=== PATIENT | male | born 1975 | race Caucasian/White ===

== ENCOUNTER 2020-04-05 04:28 | Observation (INO) | payer MEDICARE, SELFPAY ==
[2020-04-05] VITALS (75 sets, daily range): BP systolic 89–140; BP diastolic 60–108; PULSE 69–96; RESP 12–26; TEMP 36.3–36.6; O2SAT 79–98
--- NOTE | 2020-04-05 04:39 | ED.GENADUL_ITS ---
Discharge Plan Disposition Patient Disposition: [facility] INPATIENT Condition: Stable Discharge Details Chief Complaint: AMS/LOC Clinical Impression: Aggressive behavior, Acute psychosis Primary Care Provider: Shannan Deluca ED Provider: Lisa Rey Home Meds and New Rx's Prescriptions: No Action riboflavin (vitamin B2) 100 mg Tablet 100 mg PO DAILY RF: 0 propranolol 60 mg Capsule,Extended Release 24 Hr 60 mg PO DAILY RF: 0 allopurinol 100 mg Tablet 100 mg PO BID RF: 0 indomethacin 50 mg Capsule 50 mg PO BID RF: 0 hydroxyzine HCl 25 mg Tablet 25 mg PO QHS RF: 0 mirtazapine 15 mg Tablet 15 mg PO QHS RF: 0 albuterol sulfate 90 mcg/actuation Hfa Aerosol Inhaler 1 inh INHALATION ONCE RF: 0 ondansetron 4 mg Tablet,Disintegrating 4 mg PO Q8H RF: 0 oxycodone 5 mg Tablet 5 mg PO BID PRNRF: 0 duloxetine 30 mg Capsule,Delayed Release(Dr/Ec) 30 mg PO DAILY RF: 0 duloxetine 60 mg Capsule,Delayed Release(Dr/Ec) 60 mg PO DAILY RF: 0 levomefolate calcium [L-Methylfolate] 15 mg Tablet 15 mg PO DAILY RF: 0 magnesium oxide 400 mg magnesium Tablet 400 mg PO BID RF: 0 Medical Decision Making <Gurdeep Galdamez MD - Last Filed: 04/05/20 07:34> 45 yo male with hx of anxiety, irritable bowel syndrome, concussion in 2011, depression, [place] [facility] [place], who was brought in by his because of increased agitation over the past week and reportedly hasn't taken any of his meds for about a month. He was being assessed by nursing for triage when he became agitated and screaming when I entered the exam room. For staff and myself safety I did not feel safe being in the area with him as I did not feel myself and staff that were on could safely restrain him. He started to sit in a chair and rock back and forth talking to the ceiling intermittently stating things like they are here to kill me, yelling they are draining my energy! and would make gun symbols with his hands and point them at staff. He made threatening attempts when any staff went near the door of his room and he eventually got up and exited the ED. He walked into his 's car and we were able to call and speak with the and the patient was yelling in the background that we were trying to kill him and that she needs to believe him. He then said fine I'll go back in and exited the car and then left for her own safety. The police were contacted after he left the building as we did not feel he was safe to leave in his mental state. He came to the ambulance bay door and using his hands broke the entire glass door down and entered the ED. Given his agitated state and lack of adequate staff to safely restrain him the ED was evacuated for safety until PD could arrive. It took 3 larger police officers to get him to lay in the bed and he was then given 5mg of haldol and 2mg of ativan and 50mg of benadryl IM and restrained using 4 point restraints out of fear of staff safety as well as patient's safety. He has multiple superficial abrasions of the arms from breaking down the glass door. He is now appropriately answering questions and knnows his name, year and place. He denies drug use or alcohol use. He denies remembering being in his 's car, or breaking down the ambulance baydoor, or talking to any voices while in the room earlier. Will obtain labs and when able head CT to rule out any ICH. He has no fevers or other findings on history or exam to suggest underlying medical process such as endocrine or infectious etiology. spoke with patients Jessica states the past month he stopped taking his meds on certain days. He had more agitation and one day ripped a ceiling fan off and threw a phone at a TV and the left the home and called the police. When police arrived he was calm and so he was released to 's care. She reports he has been acting more strange and overly loving, laughing uncontrollably then crying uncontrollably, and then stating he was talking with god and he never does this. He has never had an episode like this in the past per , he does vape thc products and she thinks last use was 3 days ago otherwise no known drug use and no alcohol abuse. He also has had worsening insomnia and doesn't feel he has actually slept in 2 days. Patient remains intermittently agitated shaking the stretcher so additional 5mg haldol and 2mg ativan given patient flippd the stretcher and has no signs of injury so 2mg IV ativan given. Given still requires urine and CT imaging will sedate with IV ketamine. sedation complete withotu incident or complication with 150mg IV ketamine, pt signed out to oncoming provider pending imaging and lab results, if reassuring will have to be evaluated by mental health Differential Diagnosis Differential Diagnosis: russell, drug use, psychosis <Lisa Rey DO - Last Filed: 04/05/20 15:06> 0800 -- please see Dr. Galdamez's note for initial presentation, exam and plan. Case endorsed to have mental health evaluate patient once he is more awake and alert. Plan is for admission to psychiatric facility and will have to be EE if not voluntary. Labs and imaging reviewed. CT head negative. White blood cell count 11. TSH normal UDS positive for THC. Alcohol, salicylates and Tylenol negative. As he has no fever, no obvious noted focal deficits, do not suspect an acute infectious or organic cause at this time. 0900 --patient reassessed -he is becoming more alert. Patient was able to state to the nurse that he is at [facility]. He told me that he was at the [place] . He was unable to state to me that he was in the ER. When asked why he was here, he stated that he was brought here by the activated as a sleeper agent. He also stated that he is hearing voices telling him to sell his car to his neighbors for $75 and that is why he was brought here. also stated to staff earlier that he had not been taking his medications which he also admitted to the nurse. He told me that he was taking his medications. He denies any suicidal ideation. He did not answer the question about homicidal ideation. 929 --Pt evaluated by Leonor from [facility] and Antoinette with care management - he stated to them that he is an instrument of God's punishment and staff and people need to be punished because of what they did to me . He expressed to them that he is understanding of plan to go to psychiatric facility and is agreeable with psychiatric placement. Due to patient's concern for unpredictable and inconsistent behavior, plan is to complete EE paperwork. 1230 --discussed with patient's and daughter over the phone who stated that patient stopped his medication 1 month ago, specifically his duloxetine and mirtazapine which helped him with sleep. They state he told them he stopped his meds because they are from [place] . They state he has not slept for the last 2 days. They state that he has told them he is the next [facility] . On March 01, patient became agitated at home, throwing a phone at the TV and ripping a c eiling fan out, leading to the police being called, and him ultimately being cleared by police. They state since then he has had moments of acting at his baseline, but this has gotten worse over the last 2 days. 1330 --Long delay in moving patient to floor after extensive discussions with hospitalist, mental health and care management with concern for violent patient. EE paperwork completed. Dr. Velásquez had requested possible transfer to [facility] due to his level of potential violent behavior. It was discussed with [facility] psych and they think patient is too acute for transfer there. After mental health and care management discussed with multiple local facilities, patient likely will not be transferred there today. Plan is for admission to the floor while awaiting placement. Prior to transfer to floor, patient able to be additionally evaluated and noted a 2 cm laceration extending through subcu tissue left lateral wrist. Patient stated he did not want sutures. Area was irrigated and closed with Dermabond. No signs of infection or foreign body. Medical Records Medical records reviewed: Yes I reviewed the patient's medical records. HPI <Gurdeep Galdamez MD - Last Filed: 04/05/20 07:34> General Mode of arrival: ambulatory . Date/Time Provider Initiated Documentation: 04/05/20 04:30 . Limitations to Documentation: altered mental status . Information obtained by: family . History of Present Illness 45 year old M presents to the emergency department with the chief complaint of agitation, described as moderate, No relieving factors improve symptom(s), No exacerbating factors reported . Patient did receive the following treatments prior to arrival, none Related Data Home Medications Medication Instructions Recorded Confirmed albuterol sulfate 1 inh INHALATION ONCE 04/05/20 04/05/20 allopurinol 100 mg PO BID 04/05/20 04/05/20 duloxetine 30 mg PO DAILY 04/05/20 04/05/20 duloxetine 60 mg PO DAILY 04/05/20 04/05/20 hydroxyzine HCl 25 mg PO QHS 04/05/20 04/05/20 indomethacin 50 mg PO BID 04/05/20 04/05/20 levomefolate calcium 15 mg PO DAILY 04/05/20 04/05/20 [L-Methylfolate] magnesium oxide 400 mg PO BID 04/05/20 04/05/20 mirtazapine 15 mg PO QHS 04/05/20 04/05/20 ondansetron 4 mg PO Q8H 04/05/20 04/05/20 oxycodone 5 mg PO BID PRN 04/05/20 04/05/20 propranolol 60 mg PO DAILY 04/05/20 04/05/20 riboflavin (vitamin B2) 100 mg PO DAILY 04/05/20 04/05/20 Allergies Allergy/AdvReac Type Severity Reaction Status Date / Time No Known Allergies Allergy Unverified 04/05/20 05:33 General Stated Complaint: AMS/LOC PAVEL: 2 Review of Systems <Gurdeep Galdamez MD - Last Filed: 04/05/20 07:34> Unobtainable due to mental condition Exam <Gurdeep Galdamez MD - Last Filed: 04/05/20 07:34> Const General: combative HENMT Head: normal to inspection General nose exam: external nose normal Eyes Alignment and Position: alignment normal Neck Neck: normal visual inspection Resp Effort & Inspection: normal respiratory effort and able to speak in complete sentences Cardio Rate: regular rate Neuro General: patient alert Extrem General: normal to inspection Psych Speech and Movement: agitated Attitude: avoids eye contact and refuses to answer Thought Process: confabulating Course <Gurdeep Galdamez MD - Last Filed: 04/05/20 07:34> Vital Signs Vital signs: Vital Signs Temperature 36.6 C 04/05/20 04:36 Pulse 78 04/05/20 04:36 Respiratory Rate 18 04/05/20 04:36 Blood Pressure 136/108 H 04/05/20 04:36 Pulse Oximetry 98 04/05/20 04:36 Temperature 36.6 C 04/05/20 04:36 Pulse 78 04/05/20 04:36 Respiratory Rate 18 04/05/20 04:36 Blood Pressure 136/108 H 04/05/20 04:36 Pulse Oximetry 98 04/05/20 04:36 Procedures <Gurdeep Galdamez MD - Last Filed: 04/05/20 07:34> Procedural Sedation Indication: diagnostic imaging procedure ASA Class: I Preparation: radiation monitor applied and pulse oximeter Ketamine: IV Ketamine dose (mg): 150 Patient Tolerated Procedure: well and no complications Complications: none <Lisa Rey DO - Last Filed: 04/05/20 15:06> Laceration Laceration 1: Site: upper extremity (wrist) Side (If applicable): left Size (cm): 2 Description: linear Depth: simple, single layer Pre-repair: wound explored, irrigated extensively and deep structures intact Skin layer closed with: other (dermabond) Restraint Face to Face <Gurdeep Galdamez MD - Last Filed: 04/05/20 07:34> Time of Face to Face Face to Face: Time of Face to Face: 04:40 Patient's Immediate Situation Requiring Restraints/Seclusion: Harm to Staff & Others Patient Response to Restraints: Remains Agitated and Restless Patient's Medical & Behavioral Condition: agitated, broke a door, not redirectable Need for Continuation of Restraints Has Been Assessed: Restraints Continued 2nd Face to Face: Time of Face to Face: 06:40 Patient's Immediate Situation Requiring Restraints/Seclusion: Harm to Staff & Others Patient Response to Restraints: Remains Agitated and Restless Patient's Medical & Behavioral Condition: still agitated despite meds, fli pped the stretcher over Need for Continuation of Restraints Has Been Assessed: Restraints Continued Sign Out <Gurdeep Galdamez MD - Last Filed: 04/05/20 07:34> Sign Out Data: Sign Out Comment: follow up imaging and lab results , dispo Last updated by Gurdeep Galdamez MD at 04/05/20 07:17
--- NOTE | 2020-04-05 04:49 | NUR.NOTE ---
Nursing Note: all nursing care on hold until [facility]SP arrive on scene to provide back up. Pt currently sitting in room on stool and making hands into a gun and pointing them at pt.
--- NOTE | 2020-04-05 04:54 | NUR.NOTE ---
Nursing Note:Pt walked out of ED and into wifes car. calls into ED her is in the car a belligerent. is able to convince pt to return to ED. ED staff unanimously decide that pt will not be let into ED until police back up is present. Pt proceeds to break down the ambulance door. ED staff exit the ER for fear of our lives. [place] [employer], VSP, hospital security cuff pt. Pt given IM ativan and haldol and transitioned from cuffs to 4 point restraints.
[2020-04-05] MEDS: Haloperidol 5 MG/ML VIAL (05:13)
[2020-04-05] MEDS: LORazepam 2 MG/ML VIAL (05:13)
[2020-04-05] MEDS: diphenhydrAMINE 50 MG/ML VIAL ×2 (05:20→05:57)
--- NOTE | 2020-04-05 05:45 | DI.CT_ITS ---
EXAM: CT HEAD WO CLINICAL HISTORY: altered mental status TECHNIQUE: COMPARISON: No exams were available for comparison FINDINGS: Noncontrast cranial CT was performed. Mild motion artifact may obscure subtle changes. No evidence of acute intracranial hemorrhage, mass effect, or midline shift. Ventricular system is normal in nelson earance. Orbital and temporal bone structures appear intact. Mastoid air cells and paranasal sinuse s are well aerated. IMPRESSION: No evidence of acute process.
[2020-04-05 05:51] LABS: BE (Venous) -1.5 mmol/L (-3-3); HCO3 (Venous) 23 mmol/L (22-28); O2 Sat (Venous) 96 % (70-80); TCO2 (Venous) 20 mmol/L (22-29); pCO2 (Venous) 35 mm/Hg (34-47); pH (Venous) 7.42 (7.35-7.45); pO2 (Venous) 80 mm/Hg (28-44)
[2020-04-05 05:54] LABS: Abs Immature Grans 0.03 k/cumm (0.0-0.09); Absolute Basophil Count 0.02 k/cumm (0.0-0.2); Absolute Lymphocyte Count 2.34 k/cumm (1.2-3.4); Absolute Monocyte Count 0.88 k/cumm (0.11-0.7); Absolute Neutrophil Count 7.51 k/cumm (1.2-6.7); Basophils % 0.2; Eosinophils % 2.7; HCT 49.2 % (40.0-50.0); Immature Grans % 0.3 %; Lymphocytes % 21.1; Mean Corp. HGB Concentration 34.6 g/dL (32.0-36.0); Mean Corpuscular Hemoglobin 27.7 pg (27.0-33.0); Mean Corpuscular Volume 80.1 fL (80-95); Mean Platelet Volume 10.4 fL (8.0-11.0); Monocytes % 7.9; Neutrophils % 67.8; Platelet Count 231 x1000/uL (130-400); RBC 6.14 m/cumm (4.50-6.00); RBC Distribution Width 14.1 % (11.8-14.1); White Blood Cell Count 11.08 k/cumm (4.4-10.8)
[2020-04-05 06:17] LABS: Acetaminophen < 2 ug/mL (10-30); Salicylate < 2.8 mg/dL (2.8-20.0)
[2020-04-05 06:22] LABS: ALT 44 U/L (16-63); AST 33 U/L (15-37); Albumin 4.4 g/dL (3.4-5.0); Alkaline Phosphatase 53 U/L (46-116); Anion Gap 8.8 mmol/L (3-11); BUN 15 mg/dL (7-18); Bilirubin, Total 1.4 mg/dL (0.2-1.0); CO2 25.2 mmol/L (21.0-32.0); CREATININE 1.55 mg/dL (0.70-1.30); Calcium 9.4 mg/dL (8.5-10.1); Chloride 104 mmol/L (98-107); Glucose 160 mg/dL (74-106); Magnesium 2.1 mg/dL (1.8-2.4); Potassium 3.5 mmol/L (3.5-5.1); Sodium 138 mmol/L (136-145)
[2020-04-05 06:23] LABS: ETHANOL BLOOD < 3.0 mg/dL (<3)
[2020-04-05] MEDS: LORazepam 2 MG/ML VIAL IVP (06:41)
--- NOTE | 2020-04-05 06:53 | NUR.NOTE ---
Nursing Note:0635 Pt flipped stretcher ML present. no injury identified; pt further medicated.
--- NOTE | 2020-04-05 07:14 | NUR.NOTE ---
Nursing Note: Approx 0500, solaris administrator cash application clerk notified by supervisor wound. Sunni ne called and chose to send respondents back to units after evolving safety concerns. No other patient in ED at this time. customer service manager called to inform of current situation. Nellie made aware that unable to accept pts via ambulance until situation is resolved or more in hand. Hospital security present. Pt does not appear connected with reality- wild eyed stare, yelling at lights about stealing my energy and threatening to harm staff, including pointing fingers together like a gun and pretending to shoot this medical underwriter, primary nurse and MD- smiling broadly while doing this. consulted for past history as pt is new to our facility. [facility] [place]. Hx TBI, anxiety, depression. Approx 0635, pt remains in restraints for continued threatening behavior - medication given per MAR with no apparent effect. Pt rocks and flips stretcher onto right side. Nursing respond and is able to put the stretcher right side up. Evaluation for injury performed which reveals no apparent injury. Previous injury to right shoulder per pt report. No entrapment of extremity sustained during this intentional flip. According to , Jessica- pt has been struggling x approx 1 month with COVID19 evolving situation. Per , pt is fixated on this pandemic and constantly watches news about it and researches cures and other items online. Approx 1 month ago, pt reportedly stopped taking his medication because it's made in [place] for 2-3 days, during which time pt was noted to have decrease in sleep, mood disturbance, throwing objects at TV, tearing down a ceiling fan with his bare hands and telling his over and over everything is evil. During this time, and pt left house r/t safety concern, met by VSP who talked with pt . According to he starting acting normal so they let him go. reports she had been counting his pills to make sure he was taking them,though does not observe their ingestion. Approx 8 days ago, pt began taking [employer] brand ratfish oil to help the salvador off the COVID, a few drops by mouth every day. Approx 7 days ago, pt began to sleep less, stare at the lights and yell, be overly loving, laugh and cry inappropriately to situation. denies any substance use aside from vaping THC sometimes. Denies ETOH, denies known [place] disorder. states no sleep at all for pt x 48 hours. total given pt at this time for medications are:10 mg Haldol, 6 mg Ativan (4 IM, 2 IV), 50 mg Benadryl. Pt to be given Ketamine in addition for CT to r/o acute injury. Verbal consent obtained from for treatment.
[2020-04-05] MEDS: Ketamine 500 MG/10 ML VIAL 150 MG IVP (07:21)
[2020-04-05 07:52] LABS: Bilirubin Negative (Negative); Blood Negative (Negative); Clarity Clear (Clear); Glucose Negative (Negative); Ketones Trace mg/dL (Negative); Leukocyte Esterase Negative (Negative); Nitrite Negative (Negative); Urobilinogen 0.2 EU/dL (Up TO 0.2)
--- NOTE | 2020-04-05 07:55 | CMSP_ITS ---
- If Service Date Differs Date of service: 04/05/20 Time of Service: 07:55 Care Management Safety Plan Ellis presented to the ED with agitation, altered mental status and aggressive behavior. He is not known to staff, and his stated that this is not normal behavior for him. He has a history of a TBI in 2011. No known mental health history. Per his , he has not been taking his meds regularly for the past month and has displayed paranoid behavior. In the ED he was threatening and agg ressive toward staff. He left the ED and went to his car with his . ED staff called his , who was able to get him back into the ED. Upon re entering the ED, he broke the ambulance bay door with his hands. VSP was called for safety and Ellis was put on a stretcher in 4 point restraints, as well as chemical restraints. CM was paged regarding a safety plan and assistance with protocol for restraint. CM consulted administration, who advised to continue to chemically restrain as long as pt is being monitored, also keep pt in 4 point restraints. If more assistance is needed, ED staff is advised to call VSP. CM will respond to ED to assess patient after patient has been medically cleared and assessed by screener. If screener deems patient meets criteria for psychiatric stabilization CM will facilitate interdepartmental huddle with [facility] screener for safety planning considerations and meet with patient to review [facility] policy and safety plan, establish individual wishes for treatment and maintain patient rights. At this point, CM anticipates pt will be held involuntary, awaiting medical clearance. In the interim; please note safety plan below to guide patient care while awaiting further assessment in the ED. INVOLUNTARY FOR INPATIENT PSYCHIATRIC STABILIZATION. SAFETY PLAN: 1. Will remain on SI/HI precautions. In Paper Clothes 2. Will remain in room under direct supervision of one-on-one staff at all times provided by [employer]; CHRYSTAL, PSYCHIATRIC NURSE machine shorthand teacher. Per [facility] patient has a history of elopement and is at risk for repeat attempt. 3. May have paper cups, plates, finger foods as well as a cardboard spoon 4. Follow [facility] Management of the Admitted Behavioral Health Patient policy. 5. Comfort bath system only. 6. No personal belongings 7. Visitors- none at this time. 8. Activities- none at this time. 9. Bathroom privileges with supervision 10. Phone: None at this time 11. Due to INVOLUNTARY status, if patient wishes to leave [facility], the [facility] psych social worker must be contacted to re-evaluate patient prior to patient exiting the building. Patient is currently involuntarily at [facility] and seeking inpatient admission when a bed becomes available. [facility] Frontline Air Sealing Technician will continue seeking placement. Please contact the Spiral Binder Contract Attorney ([phone]) and [facility] Air Sealing Technician ([phone]) for any needed changes in the Safety Plan. Safety plan has been provided to interdepartmental care team.
[2020-04-05 08:04] LABS: Bacteria Moderate HPF (Negative); Crystals Rare Amorphous HPF (Negative); Epithelial Cells Rare HPF (Negative); Mucus Trace (Negative); WBC 0-2 HPF (0-5)
[2020-04-05 08:05] LABS: C & S Indicated? Yes; Casts 0-2 Coarse Granular LPF (Negative)
[2020-04-05 08:29] LABS: *AMPHETAMINES SCREEN URINE Negative (Negative); *BARBITURATES SCREEN URINE Negative (Negative); *BENZODIAZEPINES SCREEN URINE Negative (Negative); Cannabinoids THC POSITIVE (Negative); Cocaine Screen,Urine Negative (Negative); METHADONE URINE SCREEN Negative (Negative); OPIATES URINE SCREEN Negative (Negative)
[2020-04-05 08:30] LABS: Tricyclic Antidepressants Negative (Negative)
--- NOTE | 2020-04-05 09:20 | RES.FACE_ITS ---
Date of service: 04/05/20 Time of Service: 08:01 Restraint Face to Face Time of Face to Face Face to Face: Time of Face to Face: 08:30 Patient's Immediate Situation Requiring Restraints/Seclusion: Harm to Staff & Others Patient Response to Restraints: Tolerating without Problems Patient's Medical & Behavioral Condition: Acute psychosis, delusional, stating he is here sent by the recently activated as a sleeper agent. Need for Continuation of Restraints Has Been Assessed: Restraints Continued 2nd Face to Face: Time of Face to Face: 11:00 Patient's Immediate Situation Requiring Restraints/Seclusion: Harm to Staff & Others Patient Response to Restraints: Tolerating without Problems Patient's Medical & Behavioral Condition: Pt told Leonor from mental [facility] that he is an instrument of God's punishment and will hurt the people and staff that have harmed him. Need for Continuation of Restraints Has Been Assessed: Restraints Continued 3rd Face to Face: Time of Face to Face: 13:12 Patient's Immediate Situation Requiring Restraints/Seclusion: Harm to Staff & Others Patient Response to Restraints: Tolerating without Problems Patient's Medical & Behavioral Condition: Continued concern for patient's unpredictable and inconsistent behavior and previous threatening statements. Need for Continuation of Restraints Has Been Assessed: Restraints Continued 4th Face to Face: Time of Face to Face: 15:45 Patient's Immediate Situation Requiring Restraints/Seclusion: Harm to Staff & Others Patient Response to Restraints: Tolerating without Problems Patient's Medical & Behavioral Condition: Pt still demonstrating delusional thoughts, talking about GOD standing for guardian of desire. Noted to touch velcro of restraints, appearing to attempt to remove or adjust. Continued concern for safety of staff due to previous threatening statements and behavior. Need for Continuation of Restraints Has Been Assessed: Restraints Continued
--- NOTE | 2020-04-05 09:38 | NUR.NOTE ---
Nursing Note: Talked with patient about reasoning for restraints and let patient know someone from mental health is trying to talk with patient. Patient reports I'm not going to be able to talk with him hand cuffed with one arm up and one arm down. Patient reminded the need for restraints keeping him and others safe. Patient reports I'm not going to cooperate if I'm going to stay in cuffs. Patient reminded we need to see positive change. Patient reports You don't understand how these medications work, they mess with your mind and make you think things. Patient then responds to mental health worker saying Oh michelle there.
[2020-04-05] MEDS: OLANZapine 10 MG VIAL IM (11:14)
--- NOTE | 2020-04-05 13:45 | DI.RAD_ITS ---
EXAM: XR ANKLE LT COMPLETE CLINICAL HISTORY: PORTABLE; r/o acute fracture TECHNIQUE: COMPARISON: CR XR FOOT LT COMPLETE from 04/05/2020 FINDINGS: Three views of the ankle and three views of the foot were obtained. The ankle mortise is well mainta ined. No fracture is seen. IMPRESSION:
--- NOTE | 2020-04-05 14:12 | NUR.NOTE ---
Nursing Note: Patient reports I am a lot better knowing who GOD is. GOD is an acronym stands for guardian of design. GOD has a boss and his name is LORD. This nurse asked what that stands for and patient responds I don't know that yet. Patient reports it may stand for radio design I don't know. You see the way we communicate with others is through the pineal gland. There is an electric transmission you send with the pineal gland. If something is wrong with that gland, communication is off, you can't communicate.
--- NOTE | 2020-04-05 15:34 | NUR.NOTE ---
patient transferred to room 220 ICU with JAIRO Pineda and CHRYSTAL Dodd Nursing Note: patient cooperated with our admission policy by putting a surgical mask on the face for transfer
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
[2020-04-05 18:55] LABS: Uric Acid 7.5 mg/dL (3.5-7.2)
--- NOTE | 2020-04-05 19:03 | W.INMHPGNOTE ---
Date of service: 04/05/20 Time of Service: 19:04 Mental Health Crisis Note Presenting Issue How did you arrive at the ED and why did you come: S was brought to the ER early this am by his . She was concerned about S's changes in behaviors over the last several days. She described him as talking to God and overtly loving. Precipitating Factors S is denying SI and HI reporting that he does not wish to hurt anyone. He clearly is delusional as he speaks about positive and negative ions and energies. He reproted he is getting his orders from God in the manner of signs. He believes that he has a job to do here on earth and is going to do it. Disposition BEHAVIOR: S is cooperative and engaged in the conversation and is willing to share his experiences with the psychiatrist and clinicians present. EYE CONTACT: S makes good eye contact throughout the interview. MOOD: S's mood appears normal (relaxed and calm) through most of the interview but then becomes emotional and tearful when speaking about his revelation he had with his family that brought him to these beliefs. AFFECT: S's affect again, is normal until he became slightly emotional but he was able to self regulate. APPETITE: Celia's appetite was not discussed in this interview. SLEEP(trouble falling/staying asleep: S reported that his sleep has been poor for about [address] Babcock explained to S that he feels he needs a psychiatric admission due to the level of intensity of S's thoughts at this time. S stated that he will accept help if it helps him feel better. Dr. Babcock suggested that the hospitalist start a low dose of an anti-psychotic (recommended Risperdone 1mg BID). Once he shows that he is willing to take this medication Dr Babcock stated that [facility] (his day time employer) may be more willing to accept him. Antoinette Elizabeth, Care Manger for [facility] agreed to have this discussion with the hospitalist to see if he/she will prescribe this. This clinician called Antoinette after the zoom to ensure she did not need anything else from this clinician or agency at this time. She deneid needing anything at this time. Ni Thomas will call Antoinette in the am to set up a time to do another zoom assessment with S.
--- NOTE | 2020-04-05 19:19 | PDOC.CMSAFE ---
- If Service Date Differs Date of service: 04/05/20 Time of Service: 19:19 Care Management Safety Plan Ellis met with the counts include 234 beds at the [facility] psychiatrist for the Second Certification by Psychiatrist this evening. The counts include 234 beds at the [facility] psychiatrist found that Ellis meets EE criteria. Ellis is, therefore, remaining on involuntary status. Ellis was cooperative with the psychiatrist, answering questions calmly and in an appropriate manner. He remains delusional and paranoid, believing aliens are watching him and are ready to take over the earth. He also believes he is God's messenger. There are no available psychiatric beds this evening. Ni Thomas, [facility] adoption worker, will resume the search for placement in the morning. INVOLUNTARY FOR INPATIENT PSYCHIATRIC STABILIZATION. Safety plan has been established to meet the needs of the patient, and consideration of the care team, to adhere to patient goals, identify restrictions based on behavioral status, address nutrition, and determine allowed personal belongings, tools for hygiene and personal care. Determine level of activity including ambulation, level of supervision, visitors, and determine privileges based on behaviors and level of engagement by patient. SAFETY PLAN: 1. Will remain on SI/HI precautions and in paper clothes. 2. Will remain in room under direct supervision of one-on-one staff at all times provided by CPSO; CHRYSTAL, HEALTH AND PHYSICAL EDUCATION PROFESSOR dissolver operator. 3. May have paper cups, plates, finger foods as well as a cardboard spoon with which to eat meals. 4. Follow [facility] Management of the Admitted Behavioral Health Patient policy. 5. Comfort bath system only. 6. No personal belongings 7. Visitors: No visitors allowed. 8. Activities: None at this time. 9. Phone: No phone privileges at this time. 10. Due to INVOLUNTARY status, if patient wishes to leave [facility], the [facility] warehouse worker 2nd shift must be contacted to re-evaluate patient prior to patient exiting the building. Patient is currently involuntarily at [facility] and seeking inpatient admission when a bed becomes available. [facility] Frontline Gis Manager will continue seeking placement. Please contact the Stage Set Designer National Van Owner Operator ([phone]) and [facility] Gis Manager ([phone]) for any needed changes in the Safety Plan. Safety plan has been provided to interdepartmental care team.
[2020-04-05] MEDS: Normal Saline Flush 10 ML SYR (22:05)
[2020-04-05] MEDS: DULoxetine 30 MG CAP PO (22:25)
[2020-04-05] MEDS: Propranolol 60 MG CAPCR PO (22:25)
[2020-04-05] MEDS: Mirtazapine 15 MG TAB 7.5 MG PO (22:26)
[2020-04-05] MEDS: Indomethacin 25 MG CAP 50 MG PO (22:26)
[2020-04-05 22:44] LABS: COVID-19 RT-PCR UVMMC Result Negative (Negative)
[2020-04-06] VITALS (12 sets, daily range): BP systolic 112–143; BP diastolic 68–93; PULSE 84–104; RESP 14; TEMP 36.3–37.2; O2SAT 95–99
[2020-04-06] MEDS: hydrOXYzine HCL 25 MG TAB PO ×2 (00:24→20:43)
--- NOTE | 2020-04-06 06:07 | DI.RAD_ITS ---
EXAM: XR PORTABLE CHEST AP CLINICAL HISTORY: h/o vaping TECHNIQUE: 2D digital imaging was performed. COMPARISON: No exams were available for comparison FINDINGS: MEDIASTINUM: Normal. HEART: Normal. PULMONARY VASCULATURE: Normal. LUNGS: Clear. PLEURAL SPACE: No pleural effusion or pneumothorax. BONE:Normal. OTHER FINDINGS:Normal. IMPRESSION: No acute pulmonary findings. DATA REPOSITORY: RADIATION DOSE DELIVERED:
--- NOTE | 2020-04-06 06:19 | DI.VRAD_ITS ---
PROCEDURE INFORMATION: Exam: XR Chest, 1 View Exam date and time: 04/06/2020 6:07 AM Age: 45 years old Clinical indication: Other: H/o vaping TECHNIQUE: Imaging protocol: XR of the chest Views: 1 view. COMPARISON: No relevant prior studies available. FINDINGS: Lungs: Unremarkable. No consolidation. Pleural space: Unremarkable. No pleural effusion. No pneumothorax. Heart/Mediastinum: Unremarkable. No cardiomegaly. Bones/joints: Unremarkable. IMPRESSION: No acute findings. Dictated and Authenticated by: Yimi Clemons MD. Ordering:BRIGETTE Melton MD
[2020-04-06] MEDS: LORazepam 2 MG/ML VIAL 1 MG IVP (06:47)
[2020-04-06] MEDS: Normal Saline Flush 10 ML SYR ×2 (06:49)
[2020-04-06] MEDS: risperiDONE 1 MG TAB PO ×2 (10:27→20:44)
--- NOTE | 2020-04-06 14:02 | PDOC.CMPRO ---
- If Service Date Differs Date of service: 04/06/20 Time of Service: 14:02 Care Management Progress Note S/O: Amish is sitting in a chair when CM comes to meet with him today. He is alert, oriented and pleasant. He easily engages in conversation. He had a telehealth meeting via zoom earlier in the day with Ni [facility] screener, and a second zoom meeting with Geena [facility], this afternoon. CM discusses the safety plan with Amish and provides him with his rights. He expresses a desire to get help, is taking medication as prescribed, and is being cooperative with nursing staff. Referrals have been faxed to [facility] and to [facility]. As soon as [facility] is able to accept a referral, one will be faxed to their facility for review. [facility] is currently full and [facility] is not accepting involuntary patients at this time. This afternoon, CM receives a phone call from Bree Pascual of the [facility] who advises the only available bed at their facility is on the LGBTQ unit, which is inappropriate for Ellis. She also requests a repeat of his A1C and urinalysis to rule out a UTI and high blood sugar. This will be relayed to Dr. Breen, hospitalist. CM will continue to follow. A: Ellis is a 45 year old male admitted to [facility] on 04/05/2020 for acute psychosis. P: Amish is currently on involuntary status. He will remain at [facility] while [facility] continues to seek placement. CM will continue to follow.
--- NOTE | 2020-04-06 14:14 | PDOC.CMSAFE ---
- If Service Date Differs Date of service: 04/06/20 Time of Service: 14:15 Care Management Safety Plan INVOLUNTARY FOR INPATIENT PSYCHIATRIC STABILIZATION. Safety plan has been established to meet the needs of the patient, and consideration of the care team, to adhere to patient goals, identify restrictions based on behavioral status, address nutrition, and determine allowed personal belongings, tools for hygiene and personal care. Determine level of activity including ambulation, level of supervision, visitors, and determine privileges based on behaviors and level of engagement by patient. SAFETY PLAN: 1. Will remain on SI/HI precautions and in paper clothes. 2. Will remain in room under direct supervision of one-on-one staff at all times provided by CPSO; CHRYSTAL, CHIROPRACTIC PRACTICE MANAGER family law mediator. 3. May have paper cups, plates, finger foods as well as a cardboard spoon with which to eat meals. 4. Follow [facility] Management of the Admitted Behavioral Health Patient policy. 5. Comfort bath system only. 6. No personal belongings 7. Visitors: No visitors allowed. 8. Activities: Books, television, and other activities at nursing discretion. 9. Phone: No phone privileges at this time. 10. Due to INVOLUNTARY status, if patient wishes to leave [facility], the [facility] ammonia worker must be contacted to re-evaluate patient prior to patient exiting the building. Patient is currently involuntarily at [facility] and seeking inpatient admission when a bed becomes available. [facility] Frontline Missing Persons Investigator will continue seeking placement. Please contact the Sales And Marketing Director Pet Care Worker ([phone]) and [facility] Missing Persons Investigator ([phone]) for any needed changes in the Safety Plan. Safety plan has been provided to interdepartmental care team.
--- NOTE | 2020-04-06 14:30 | PDOC.MHCN ---
Date of service: 04/06/20 Time of Service: 14:31 Mental Health Crisis Note Presenting Issue How did you arrive at the ED and why did you come: Patient is now in ICU waiting placement to a psychiatric facility. HE is on EE involuntary status. Hospitals have been contacted. Precipitating Factors He is not experiencing SI or HI He does remember why he is here but he feels much better and did not want to discuss much about what happened last night. He did not mention his fears from last night . He now feels that he is being targeted by the police and others . he is very unhappy since he had a brain injury in 2011. Disposition BEHAVIOR: He is calm and cooperative. EYE CONTACT: he focuses on the screen and directs his conversaton to this clinician. MOOD: His mood is anxious and depressed. AFFECT: His affect is restricted but not blunt. APPETITE: He reports his appetite is good and he is eating SLEEP(trouble falling/staying asleep: He slept well. Plan It was recommended by Dr. Babcock of [facility] that the patient be given risperidone 1 mg and that was administered this morning. This clinician discussed his placement with the Ribbing Machine Operator Antoinette Elizabeth and she has been following up with [facility] on his placement as attempts at contacting [facility] by this clinician were uncsuccessful. His referral has been sent to [facility] and [facility] . Geena Chavez will be evaluated him again this evening.
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
--- NOTE | 2020-04-06 16:00 | PGE_ITS ---
Date of Service Date of service: 04/06/20 Time of Service: 16:01 Assessment and Plan Assessment and plan (1) Acute psychosis: Status: Acute Assessment and plan: Patient's acute psychosis appears to have cleared. He is comfortable and cooperative in this environment. He is starting on Risperdal 1 mg p.o. twice daily. Goal is to get him to a psychiatric facility for further management. (2) Discharge planning issues: Status: Acute Assessment and plan: He is admitted to observation status in our ICU for close monitoring. Plan is transfer to psychiatric facility. Subjective Subjective Interval history since last seen: Patient was admitted yesterday with severe agitated delirium with hallucinations. Overnight he has been calm and cooperative. He did get 1 dose of IV lorazepam in the hydraulic and plumbing installer hours. He has not required any further sedatives. Following his second certification with [facility] physician it was recommended that he be tried on respite all 1 mg twice daily which was started this morning. He is taking medications willingly. He has been interactive and cooperative with staff. There have been no outbursts today. Exam Narrative Exam Narrative: I interviewed the patient in his room. He was cooperative and interactive. I observed him up walking around and taking care of his own ADLs without any difficulty. His speech is clear his sensorium appears to be clear. Objective Objective Clinical Data: Abnormal lab results 04/05/20 Range/Units 05:43 Uric Acid 7.5 H (3.5-7.2) mg/dL Vital Signs Temperature 36.4 C L 04/06/20 15:14 Temperature Source Temporal Artery Scan 04/06/20 15:14 Pulse 92 H 04/06/20 15:14 Pulse 89 04/05/20 14:30 Respiratory Rate 14 04/06/20 04:31 Respiratory Effort Non-Labored 04/06/20 15:14 Respiratory Depth Normal 04/06/20 15:14 Respiratory Pattern Normal 04/06/20 15:14 Blood Pressure 112/68 04/06/20 14:56 Blood Pressure Mean 78 04/06/20 14:56 Blood Pressure Position Sitting 04/06/20 15:14 Pulse Oximetry 95 04/06/20 15:14 Oxygen Delivery Method Room Air 04/06/20 15:14 Oxygen Flow Rate 0 04/06/20 15:14 Pain Level 0 04/06/20 15:14 Intake & Output 04/05/20 04/06/20 04/06/20 23:59 11:59 23:59 Intake Total 240 / 240 1750 / 1750 Output Total 1400 / 1925 525 / 1925 Balance 240 / 240 350 / -175 -525 / -175 Weight 113.398 kg 112.9 kg 112.9 kg Intake: Oral 240 / 240 1750 / 1750 Output: Urine 1400 / 1925 525 / 1925 Other: Urine Color Dark Pat Yellow Urine Appearance Clear Clear Urine Odor None Normal Comment Pt denies urinary difficulties. Stool Occult Blood Negative Negative Stool Size Moderate Moderate Stool Characteristics Soft Soft Formed Voiding Methods Toilet Urinal Laboratory Results WBC 11.08 k/cumm (4.4-10.8) H 04/05/20 05:43 RBC 6.14 m/cumm (4.50-6.00) H 04/05/20 05:43 Hgb 17.0 g/dL (13.5-17.5) 04/05/20 05:43 Hct 49.2 % (40.0-50.0) 04/05/20 05:43 MCV 80.1 fL (80-95) 04/05/20 05:43 MCH 27.7 pg (27.0-33.0) 04/05/20 05:43 MCHC 34.6 g/dL (32.0-36.0) 04/05/20 05:43 RDW 14.1 % (11.8-14.1) 04/05/20 05:43 Plt Count 231 x1000/uL (130-400) 04/05/20 05:43 MPV 10.4 fL (8.0-11.0) 04/05/20 05:43 Immature Gran % 0.3 % 04/05/20 05:43 Neutrophils % 67.8 04/05/20 05:43 Lymphocytes % 21.1 04/05/20 05:43 Monocytes % 7.9 04/05/20 05:43 Eosinophils % 2.7 04/05/20 05:43 Basophils % 0.2 04/05/20 05:43 Absolute Neutrophils 7.51 k/cumm (1.2-6.7) H 04/05/20 05:43 Absolute Lymphocytes 2.34 k/cumm (1.2-3.4) 04/05/20 05:43 Absolute Monocytes 0.88 k/cumm (0.11-0.7) H 04/05/20 05:43 Absolute Eosinophils 0.30 k/cumm (0.0-0.7) 04/05/20 05:43 Absolute Basophils 0.02 k/cumm (0.0-0.2) 04/05/20 05:43 VBG pH 7.42 (7.35-7.45) 04/05/20 05:43 VBG pCO2 35 mm/Hg (34-47) 04/05/20 05:43 VBG pO2 80 mm/Hg (28-44) H 04/05/20 05:43 VBG HCO3 23 mmol/L (22-28) 04/05/20 05:43 VBG Total CO2 20 mmol/L (22-29) L 04/05/20 05:43 VBG O2 Saturation 96 % (70-80) H 04/05/20 05:43 VBG Base Excess -1.5 mmol/L (-3-3) 04/05/20 05:43 Sodium 138 mmol/L (136-145) 04/05/20 05:43 Potassium 3.5 mmol/L (3.5-5.1) 04/05/20 05:43 Chloride 104 mmol/L (98-107) 04/05/20 05:43 Carbon Dioxide 25.2 mmol/L (21.0-32.0) 04/05/20 05:43 Anion Gap 8.8 mmol/L (3-11) 04/05/20 05:43 BUN 15 mg/dL (7-18) 04/05/20 05:43 Creatinine 1.55 mg/dL (0.70-1.30) H 04/05/20 05:43 Estimated GFR/1.73 m2 48.30 (mL/min/1.73m2) 04/05/20 05:43 Glucose 160 mg/dL (74-106) H 04/05/20 05:43 Uric Acid 7.5 mg/dL (3.5-7.2) H 04/05/20 05:43 Calcium 9.4 mg/dL (8.5-10.1) 04/05/20 05:43 Magnesium 2.1 mg/dL (1.8-2.4) 04/05/20 05:43 Total Bilirubin 1.4 mg/dL (0.2-1.0) H 04/05/20 05:43 AST 33 U/L (15-37) 04/05/20 05:43 ALT 44 U/L (16-63) 04/05/20 05:43 Alkaline Phosphatase 53 U/L (46-116) 04/05/20 05:43 Total Protein 8.0 g/dL (6.4-8.2) 04/05/20 05:43 Albumin 4.4 g/dL (3.4-5.0) 04/05/20 05:43 TSH 1.50 uIU/mL (0.36-3.74) 04/05/20 05:43 Urine Color Yellow (Yellow) 04/05/20 07:42 Urine Clarity Clear (Clear) 04/05/20 07:42 Urine pH 6.0 (5-8) 04/05/20 07:42 Ur Specific [place] 1.020 (1.005-1.025) 04/05/20 07:42 Urine Protein Trace mg/dL (Negative) H 04/05/20 07:42 Urine Ketones Trace mg/dL (Negative) H 04/05/20 07:42 Urine Blood Negative (Negative) 04/05/20 07:42 Urine Nitrite Negative (Negative) 04/05/20 07:42 Urine Bilirubin Negative (Negative) 04/05/20 07:42 Urine Urobilinogen 0.2 EU/dL (Up TO 0.2) 04/05/20 07:42 Ur Leukocyte Esterase Negative (Negative) 04/05/20 07:42 Urine RBC 3-5 HPF (0-2) H 04/05/20 07:42 Urine WBC 0-2 HPF (0-5) 04/05/20 07:42 Ur Epithelial Cells Rare HPF (Negative) 04/05/20 07:42 Urine Crystals Rare amorphous HPF (Negative) 04/05/20 07:42 Urine Bacteria Moderate HPF (Negative) 04/05/20 07:42 Urine Casts 0-2 coarse granular LPF (Negative) 04/05/20 07:42 Urine Mucus Trace (Negative) 04/05/20 07:42 Ur Culture Indicated? Yes 04/05/20 07:42 Urine Glucose Negative mg/dL (Negative) 04/05/20 07:42 Salicylates < 2.8 mg/dL (2.8-20.0) 04/05/20 05:43 Urine Opiates Screen Negative (Negative) 04/05/20 07:42 Urine Methadone Screen Negative (Negative) 04/05/20 07:42 Acetaminophen < 2 ug/mL (10-30) 04/05/20 05:43 Ur Barbiturates Screen Negative (Negative) 04/05/20 07:42 Ur Tricyclics Screen Negative (Negative) 04/05/20 07:42 Ur Amphetamines Screen Negative (Negative) 04/05/20 07:42 U Benzodiazepines Scrn Negative (Negative) 04/05/20 07:42 Urine Cocaine Screen Negative (Negative) 04/05/20 07:42 Ur THC Screen Positive (Negative) A 04/05/20 07:42 Ethyl Alcohol < 3.0 mg/dL (<3) 04/05/20 05:43 COVID-19 PCR Negative (Negative) 04/05/20 07:42 Nasopharyn COVID-19 PCR Not Applicable 04/05/20 07:42 Ref Test Perform Site [facility] lab 04/05/20 07:42
--- NOTE | 2020-04-06 17:39 | W.INMHPGNOTE ---
Date of service: 04/06/20 Time of Service: 17:39 Mental Health Crisis Note Presenting Issue How did you arrive at the ED and why did you come: S arrived at the ER 2 nights ago via his of 20 years. He reported yesterday he came due to concerns about his breathing. Precipitating Factors S deneid SI and HI and states he still has no memories of how or why he broke the ER ambulance bay door. Disposition BEHAVIOR: S seemed much clearer today in his thoughts although is still missing pieces of events. He engages well with the interview and there have not been any behavior issues since coming up on th floor according to care piero Curry. He has been willing to take the Risperdone that had been prescribed and has had 1 dose so far. EYE CONTACT: S makes good eye contact throughout the interview. MOOD: S appears to be in good spirits and is willing to take it one day at a time. AFFECT: S's affect is normal in range and appropriate to discussion. APPETITE: S reported that he is eating well and is expecting Chicken Parmasean for dinner. SLEEP(trouble falling/staying asleep: S reported that he had been sleeping much better since being at the hospital. Plan I informed Antoinette that I was in the office without my computer (using another staff's) and so would not be able to do my note here until I got home. Antoinette stated this was fine. Antoinette reports that she has been trying to get in touch with the but has been unsuccessful. Leonor Steven agreed to out reach to the and see if he had any success. Leonor text this clinician on the way home and reported that he left a detailed message on the 's voicemail on how she could get in touch with either Antoinette or himself. The did call Antoinette after the zoom meeting and after Leonor left her a voicemail. expressed serious concerns about S being released. Antoinette reported that the reported she and their child are petrified of Ellis and reports that he was able to hold it together back in February when [facility] showed after an incident there and then quickly went back to his paranoid, delusional state. We agree as a team that S should stay on EE status for further evaluation despite discussions of possible walking off today. I agreed to share, and did share this information with Ni Thomas and Leonor Steven. Signature Clinician's Name/Title: Geena Chavez MS, [facility] Emergency Services Clinician
[2020-04-06] MEDS: Propranolol 60 MG CAPCR PO (20:43)
[2020-04-06] MEDS: DULoxetine 30 MG CAP PO (20:43)
[2020-04-06] MEDS: Indomethacin 25 MG CAP 50 MG PO (20:44)
[2020-04-06] MEDS: Mirtazapine 15 MG TAB 7.5 MG PO (20:44)
[2020-04-07 01:00] VITALS: TEMP 36.7
[2020-04-07 03:00] VITALS: BP 145/97; PULSE 88; RESP 18; TEMP 36.6; O2SAT 97
[2020-04-07 07:26] VITALS: BP 130/88; PULSE 94; RESP 17; TEMP 36.3; O2SAT 96
[2020-04-07] MEDS: risperiDONE 1 MG TAB PO (08:05)
--- NOTE | 2020-04-07 10:27 | PDOC.CMPRO ---
- If Service Date Differs Date of service: 04/07/20 Time of Service: 10:27 Care Management Progress Note S/O: Amish remains calm, cooperative and appropriate in his interactions with staff. CM spoke to his , Jessica, and daughter, Kylee, last evening on the telephone and asked if they would be receptive to receiving a phone call from Amish. Jessica reports both she and Kylee are traumatized from Amish's angry outbursts at home and, at this time, neither wish to have any contact with him. Jessica goes on to say they are petrified of him and do not want him to come home. Jessica states he calls them evil and she fears for her life and her daughter's life. She is currently considering leaving her and moving out of the area. Jessica also tells CM that Amish is very manipulative and tells people what he thinks they want to hear. CM advises Amish his is not currently open to speaking with him on the telephone, as she remains upset with him. Amish is also advised that she is trying to figure out what happens next, to which he calmly replies that's ok. I've been trying for a while to get them to see the light but they are both still in the dark. When CM questions him about what that means, he states he has found God and he is following the path God wants him on but his and daughter have not found their path in life yet. He further says his family have to figure out what is right for them and it's ok if they decide leaving him is what they need to do right now. He then adds I will see them again. A: Ellis is a 45 year old male who remains at [facility] on involuntary status awaiting a psychiatric placement. P: [facility] continues to seek an involuntary placement for Ellis. A referral is faxed to [facility] this morning at their request. [facility] and [facility] accepted referrals for review on Wednesday. [facility] does not have an appropriate bed available. [facility] will make a decision on the referral on Wednesday. CM will continue to follow.
--- NOTE | 2020-04-07 10:59 | PHA.REVIEW ---
Pharmacy Admission Review - Admission Clinical Review (Last Updated 04/05/20 @ 16:57 by Linh Velásquez MD) Discharge planning issues (Acute) DVT prophylaxis (Acute) Elevated serum creatinine (Acute) Insomnia (Acute) Aggressive behavior (Acute) Acute psychosis (Acute) No Known Allergies Allergy (Unverified 04/05/20 05:33) Height 5 ft 9.5 in Weight 112.9 kg - Renal Dosing Renal Dosing: BUN 15 mg/dL (7-18) 04/05/20 05:43 Creatinine 1.55 mg/dL (0.70-1.30) H 04/05/20 05:43 Medications needing adjustments: Reviewed (Crcl ~73.6 mL/min using adjusted body weight, current meds okay) - Anticoagulation Anticoagulation: Hgb 17.0 g/dL (13.5-17.5) 04/05/20 05:43 Hct 49.2 % (40.0-50.0) 04/05/20 05:43 Plt Count 231 x1000/uL (130-400) 04/05/20 05:43 Creatinine 1.55 mg/dL (0.70-1.30) H 04/05/20 05:43 DVT Prohphylaxis: N/A Therapeutic Anticoagulation: N/A - Opiate Usage Evaluate Pain Scale/Pains Meds: N/A - Relevant Labs Sodium 138 mmol/L (136-145) 04/05/20 05:43 Potassium 3.5 mmol/L (3.5-5.1) 04/05/20 05:43 Chloride 104 mmol/L (98-107) 04/05/20 05:43 Magnesium 2.1 mg/dL (1.8-2.4) 04/05/20 05:43 Electrolytes, C-Reactive P, ESR: Reviewed - DM Control DM Control: Glucose pending 04/07/20 11:30 Insulin Dosing: N/A - Heart Failure/HI EF%, GABE's, B-Blockers, Diuretics: Reviewed (propranolol) - BP Control BP Control: Blood Pressure 130/88 Blood Pressure 145/97 If elevated: N/A - Qtc Review If Elevated: N/A - IV to PO Switch IV Medications: N/A - Home Meds Home Med List reviewed: Reviewed (propranolol may diminish the bronchodilatory effects of albuterol. Recommended to avoid the use of nonselective beta-blockers in patients with beta2-agonists; if used concomitantly monitor closely for diminished bronchodilatory effects.) Relevent Home Meds Not ordered & why?: all home meds are ordered - Current meds Current Medication Order Review: Reviewed - Comments Comments/Follow Ups: waiting for placement, repeat UA and BG ordered for today. Antibiotic Activity - Pharmacy Antibiotic Review Pharmacy Antibiotic Activity: C/S review (urine culture- no growth @48 hours)
--- NOTE | 2020-04-07 11:02 | PDOC.CMSAFE ---
- If Service Date Differs Date of service: 04/07/20 Time of Service: 11:02 Care Management Safety Plan INVOLUNTARY FOR INPATIENT PSYCHIATRIC STABILIZATION. Safety plan has been established to meet the needs of the patient, and consideration of the care team, to adhere to patient goals, identify restrictions based on behavioral status, address nutrition, and determine allowed personal belongings, tools for hygiene and personal care. Determine level of activity including ambulation, level of supervision, visitors, and determine privileges based on behaviors and level of engagement by patient. SAFETY PLAN: 1. Will remain on SI/HI precautions and in paper clothes. 2. Will remain in room under direct supervision of one-on-one staff at all times provided by [employer]; CHRYSTAL, CLAIMS ADMINISTRATOR sustainability coordinator. 3. May have paper cups, plates, finger foods as well as a cardboard spoon with which to eat meals. 4. Follow [facility] Management of the Admitted Behavioral Health Patient policy. 5. As long as patient's behavior remains calm and cooperative, he is allowed to shower with supervision. 6. No personal belongings 7. Visitors: No visitors allowed. 8. Activities: Books, television, and other activities at nursing discretion. 9. Phone: No phone privileges at this time. 10. Due to INVOLUNTARY status, if patient wishes to leave [facility], the [facility] plaster and stucco worker must be contacted to re-evaluate patient prior to patient exiting the building. Patient is currently involuntarily at [facility] and seeking inpatient admission when a bed becomes available. [facility] Frontline Water Quality Tester will continue seeking placement. Please contact the [employer] ([phone]) and [facility] Water Quality Tester ([phone]) for any needed changes in the Safety Plan. Safety plan has been provided to interdepartmental care team.
[2020-04-07 11:09] LABS: Bilirubin Negative (Negative); Blood Negative (Negative); Clarity Clear (Clear); Glucose Negative (Negative); Ketones Negative (Negative); Leukocyte Esterase Negative (Negative); Nitrite Negative (Negative); Specific Gravity 1.025 (1.005-1.025); Urobilinogen 0.2 EU/dL (Up TO 0.2); pH 5.5 (5-8)
[2020-04-07 12:02] LABS: Glucose 111 mg/dL (74-106)
--- NOTE | 2020-04-07 13:37 | NUR.NOTE ---
nurse to nurse completed. Nursing Note:
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
--- NOTE | 2020-04-07 14:04 | CMDISCH_ITS ---
- If Service Date Differs Date of service: 04/07/20 Time of Service: 14:04 LACE Index Scoring Tool - Questions: Length of Stay (in days): 2 Acuity (Admit via E.D.?): Yes E.D. Visits: 1 - Answers: Total Score: 6 Risk of Readmission: Low Risk Care Management Discharge Reason for Hospitalization: Acute psychosis with violent behavior. Discharge Plan: Ellis is transferring today to the [facility] for psychiatric stabilization. Transportation from [facility] to [facility] is provided by [facility]. Patient/Family Education Needs: Discharge education, expectation, and plan for transfer. Services Needed at Discharge: Transportation (By [facility]) - MH Services (Omit if N/A) Current MH Services: Psychiatric Inp
--- NOTE | 2020-04-07 14:04 | PDOC.CMDIS ---
- If Service Date Differs Date of service: 04/07/20 Time of Service: 14:04 LACE Index Scoring Tool - Questions: Length of Stay (in days): 2 Acuity (Admit via E.D.?): Yes E.D. Visits: 1 - Answers: Total Score: 6 Risk of Readmission: Low Risk Care Management Discharge Reason for Hospitalization: Acute psychosis with violent behavior. Discharge Plan: Ellis is transferring today to the [facility] ([facility]) for psychiatric stabilization. Transportation from [facility] to [facility] is provided by [facility]. Patient/Family Education Needs: Discharge education, expectation, and plan for transfer. Services Needed at Discharge: Transportation (By [facility]) - MH Services (Omit if N/A) Current MH Services: Psychiatric Inp
== END 2020-04-07 15:21 | disposition short-term general hospital (02) ==
LOC: ER 14:15 → ICU 04-06 08:04 → MS 04-07 06:03 → ICU 04-08 12:50
PROVIDERS: Emergency Medicine; Admitting Provider Internal Medicine; Emergency Provider Physician Assistant; PCP Nurse Practitioner; Visit Provider Family Medicine
DX: F23 Brief psychotic disorder (principal); Z87.820 Personal history of traumatic brain injury; F43.10 Post-traumatic stress disorder, unspecified; F41.8 Other specified anxiety disorders; Z78.1 Physical restraint status; F91.8 Other conduct disorders; G47.00 Insomnia, unspecified; R79.89 Other specified abnormal findings of blood chemistry; U07.0 Vaping-related disorder
CPT/HCPCS: 12001; 36415; 80053; 80307; 82805; 82947; 96372; 96374; 96375; 99217; 99223; 99225; 99285; U0003; 70450; 71045; 73610; 73630; 80320; 80329; 81003; 81015; 83735; 84443; 84550; 85025; 87086; 99220; J1200; J1630; J2060; J3490